=== PATIENT | female | born 1950 | race Two or more races ===

== ENCOUNTER 2025-07-16 13:06 | Emergency (ER) | payer OTHER ==
[~2025-07-16] VITALS: Ht 162.6 cm; Wt 65.8 kg
[2025-07-16] MEDS ORDERED: DEXAMETHASONE SODIUM PHOSPHATE 4 MG/ML VIAL IM STA (14:22)
[2025-07-16] MEDS ORDERED: ORPHENADRINE CITRATE 30 MG/ML AMPUL IM STA (14:22)
[2025-07-16] MEDS ORDERED: ORPHENADRINE CITRATE 30 MG/ML AMPUL ONE (17:20)
[2025-07-16] MEDS ORDERED: DEXAMETHASONE SODIUM PHOSPHATE 4 MG/ML VIAL ONE (17:20)
[2025-07-16 19:25] LABS: URINE APPEARANCE Clear; URINE BILIRRUBIN Negative (NEGATIVE); URINE BLOOD Negative; URINE COLOR Yellow; URINE KETONE Negative (NEGATIVE); URINE LEUKOCYTE Trace; URINE NITRATE Negative; URINE PROTEIN Negative (NEGATIVE); URINE UROBILINOGEN 0.2 E.U./dl
[2025-07-16 19:27] LABS: URINE BACTERIA 31.1 uL (0.0-1933); URINE EPITHELIAL CELLS 7.5 uL (0.0-38.8); URINE RBC 6.7 uL (0.0-20.8); URINE WBC 8.6 uL (0.0-23.2)
[2025-07-16 19:43] LABS: URINE CAST 0.58 uL (0.0-1.40); URINE GLUCOSE 100 MG/DL (NEGATIVE)
== END 2025-07-16 21:20 | disposition home or self-care (01) ==
LOC: ER 13:07
PROVIDERS: General Practice
DX: R10.A1 Flank pain, right side (principal); M54.59 Other low back pain; R10.20 Pelvic and perineal pain unspecified side; Z88.6 Allergy status to analgesic agent
CPT/HCPCS: 36415; 76770; 96372; 99284; J1100; J2360